=== PATIENT | male | born 1935 | race Caucasian/White ===

== ENCOUNTER → 2016-06-07 | Outpatient (CLI) | payer BC, OTHER ==
--- NOTE | 2016-06-07 12:36 | DX ---
Biphasic Esophagram Clinical History: 81-year-old male with dysphagia and a prior history of cervical arthrodesis. Technique: While the patient was standing, effervescent crystals and thick barium were ingested. Fluo roscopy of the hypopharynx and of the cervical and thoracic esophagus was performed. The patient was also placed in a supine position to assess for reflux. A prone STEVEN drinking esophagus was deferred be cause of the patient's prior cervical arthrodesis. Fluoroscopy Time: 2.7 minutes (exposure dose of 28.50 mGy). Comparison Study: This is read in conjunction with a video fluoroscopic exam performed with [facility] tony choi reported separately. Findings: There is oropharyngeal propulsion of the bolus into the hypopharynx with significant poolin g in the vallecula and piriform sinuses. There is poor epiglottic inversion and there was some vestib ular penetration, and minimal aspiration (which was sensate), and prompted multiple episodes of throa t-clearing. There was no interference in the cervical esophageal motility from the patient's prior AC DF. There was no cricopharyngeus spasm, achalasia, or Zenker diverticulum. There is thoracic esophage al dysmotility observed, and despite prior administration of effervescent crystals, there was subopti mal air contrast distention. There was evidence of esophageal dysmotility with some antegrade and ret rograde peristalsis observed. There was no hiatal hernia elicited, although a Valsalva maneuver was n ot performed. There is no esophageal ulceration or stricture identified, or pulsion diverticulum. I p rovided a preliminary interpretation to the patient at the time of exam performance. Impression: 1. Oropharyngeal dysphagia with hypopharyngeal pooling, poor epiglottic function, and some vestibular penetration and transient sensate aspiration of the barium. 2. Thoracic esophageal dysmotility.
--- NOTE | 2016-06-07 12:41 | DX ---
Video Esophagram with Speech Therapy Clinical History: 81-year-old male who had a prior ACDF, and presents for reevaluation of dysphagia. ICD-10 Diagnostic Code: R13.10. Technique: This exam was performed in conjunction with Shauna Corley, the speech therapist, and the p atient was imaged in the lateral projection while ingesting thin barium, pureed consistency barium, a nd a cracker coated with barium. Fluoroscopy Time: 2.1 minutes (exposure dose of 3.40 mGy). Comparison Study: Video esophagram with speech therapy, dated November 15, 2015. Findings: There is oropharyngeal propulsion of the bolus into the hypopharynx, but very poor and inc omplete epiglottic inversion with moderate persistent pooling of each of the ingested substances in t he vallecula and piriform sinuses. There was no jet aspiration observed during the course of the ex am. The anterior cervical diskectomy and fusion plate from C3 to C6 is appropriately adhered, and the re is no significant impingement on the posterior cervical esophageal wall. There is no upper esophag eal dysfunction. Impression: Moderate pharyngeal dysphagia with significant hypopharyngeal residue requiring sequenti al swallows for clearing. There is also poor epiglottic inversion, but no aspiration was observed wit h limited quantities. Please also refer to the speech therapist's separate assessments and specific recommendations for fol low up.
== END ==
PROVIDERS: ATTEND Otolaryngology
DX: R13.10 Dysphagia, unspecified (principal); K22.4 Dyskinesia of esophagus; J38.7 Other diseases of larynx
CPT/HCPCS: 74220; 74230; 92611; G8996; G8997; G8998

== ENCOUNTER → 2016-11-07 | Outpatient (CLI) | payer BC | LOC: FIMAGING 09:35 | PROVIDERS: ATTEND Physician Assistant | DX: Z09 Encounter for follow-up examination after completed treatment for conditions other than malignant neoplasm (principal); Z98.1 Arthrodesis status ==

== ENCOUNTER 2017-01-15 08:34 | Day surgery (SDC) | payer BC ==
[2017-01-15] MEDS ORDERED: LR 1,000 ML IV ONE (09:05)
[2017-01-15] MEDS ORDERED: LIDOCAINE 1% 2 ML INJ ID PRN (09:05)
[2017-01-15 09:12] VITALS: PULSE 77
--- NOTE | 2017-01-15 09:53 | CPEKG ---
Heart Rate: 75 RR Interval: 800 QRSD Interval: 118 QT Interval: 464 QTC Interval: 519 QRS [place]: -28 T Wave [place]: 177 EKG Severity - ABNORMAL ECG - EKG Impression: ATRIAL FIBRILLATION EKG Impression: NONSPECIFIC INTRAVENTRICULAR CONDUCTION DELAY Electronically Signed By: Deric Bartlett 15-Jan-2017 17:17:16
[2017-01-15 10:09] LABS: ANION GAP 7 mEq/L (8-16); CALCIUM 8.9 mg/dL (8.5-10.4); CARBON DIOXIDE 28 mEq/l (22-31); CHLORIDE 103 mEq/L (97-110); CREATININE 0.9 mg/dL (0.7-1.3); GLOMERULAR FILTRATION RATE > 60; GLUCOSE 74 mg/dL (70-100); SODIUM 138 mEq/L (134-144)
[2017-01-15] MEDS ORDERED: PROPOFOL/EMULSION 500 MG/50 ML BOTTLE IV ONE (11:28)
--- NOTE | 2017-01-15 11:31 | PDGENHP ---
History & Physical Chief Complaint: dyspahgia History of Present Illness: 81 year old male presents with ongoing dysphagia. + liquids and solids. abnormal videofluoro Pertinent Past, Social, Family History: PMHx: spinal surgery, afib,cad Relevant Physical Exam: HEENT: anicteric. CV- IRR IRR. Lungs- CTAB Cardiorespiratory Assessment: ASA 3. [place] 2
--- NOTE | 2017-01-15 11:31 | PDANEPAE ---
ANE History of Present Illness here for egd ANE Past Medical History - Cardiovascular History Hx Hypertension: Yes Hx Arrhythmias: Yes Hx Chest Pain: No Hx Coronary Artery / Peripheral Vascular Disease: Yes Hx CHF / Valvular Disease: Yes Hx Palpitations: No Cardiovascular History Comment: STENT 2006. ATRIAL FIB. cad. CHF 08/2015 COLLAPSED TWICE AT HOME - Pulmonary History Hx COPD: No Hx Asthma/Reactive Airway Disease: No Hx Recent Upper Respiratory Infection: No Hx Oxygen in Use at Home: No Hx Sleep Apnea: Yes Sleep Apnea Screening Result - Last Documented: Positive Pulmonary History Comment: HAS NORMAL COLD BEGINNING 09/13/15 - Neurologic History Hx Cerebrovascular Accident: No Hx Seizures: No Hx Dementia: No - Endocrine History Hx Diabetes: No - Renal History Hx Renal Disorders: Yes Renal History Comment: NOCTURIA - Liver History Hx Hepatic Disorders: No - Neurological & Psychiatric Hx Hx Neurological and Psychiatric Disorders: Yes Neurological / Psychiatric History Comment: DEPRESSION - Cancer History Hx Cancer: Yes Cancer History Comment: SKIN - Congenital Disorder History Hx Congenital Disorders: No - GI History Hx Gastrointestinal Disorders: Yes Gastrointestinal History Comment: having difficulty swallowing since surgery in 10/2015 - Other Health History Other Health History: THROMBOCYTOPENIA. ARTHRITIS. wears glasses - Chronic Pain History Chronic Pain: No - Surgical History Prior Surgeries: 10/06/15 ACDF and C3-6 instrumentation with [employer]. RT CATARACT. APPENDECTOMY. REMVL BONE CYST RT FINGER ANE Review of Systems Review of systems is: negative - Exercise capacity Exercise capacity: >=4 METS METS (RN): 4 METS ANE Patient History - Allergies Allergies/Adverse Reactions: No Known Allergies Allergy (Verified 01/12/17 15:30) - Home Medications Home medications: home medication list seen and reviewed Home Medications: Atenolol [Tenormin 25 mg (*)] 06/14/10 [Last Taken 01/14/17 12:00] Lisinopril [Zestril 20 mg (*)] 06/14/10 [Last Taken 01/14/17 12:00] Sertraline HCl [Zoloft 50mg (*)] 06/14/10 [Last Taken 01/14/17 12:00] Simvastatin 06/14/10 [Last Taken 01/14/17 12:00] Warfarin Sodium [Coumadin 5MG (*)] 06/14/10 [Last Taken 01/12/17] Furosemide [Lasix 40 MG (*)] 09/16/15 [Last Taken 01/14/17 12:00] Aspirin 81mg (*) 01/12/17 [Last Taken 01/14/17 12:00] - NPO status NPO Since - Liquids (Date): 01/14/17 NPO Since - Liquids (Time): 20:00 NPO Since - Solids (Date): 01/14/17 NPO Since - Solids (Time): 20:00 - Smoking Hx Smoking Status: Never smoked - Family Anes Hx Family Hx Anesthesia Complications: none ANE Labs/Vital Signs - Labs Result Diagrams: 01/15/17 09:40 - Vital Signs Blood Pressure: 139/83 Heart Rate: 77 Respiratory Rate: 15 O2 Sat (%): 93 Height: 182.88 cm Weight: 81.647 kg ANE Physical Exam - Airway Neck exam: FROM, decreased ROM Mallampati Score: Class 1 - Pulmonary Pulmonary: no respiratory distress - Cardiovascular Cardiovascular: irregularly irregular - ASA Status ASA Status: III ANE Anesthesia Plan Anesthesia Plan: GA with mask
[2017-01-15] MEDS ORDERED: NALOXONE HCL 0.4 MG/ML INJ IVP PRN (11:39)
[2017-01-15] MEDS ORDERED: fentaNYL 100 MCG/2 ML INJ IVP PRN (11:39)
[2017-01-15] MEDS ORDERED: ONDANSETRON 4 MG/2 ML VIAL IVP PRN (11:39)
--- NOTE | 2017-01-15 12:21 | POSTANESTH ---
Post Anesthetic Evaluation Cardiovascular Status: Normal, Stable Respiratory Status: Normal, Stable Level of Consciousness/Mental Status: Can Participate in Eval Pain Control: Adequate, Prn Tx Ordered Nausea/Vomiting Control: Adequate, Prn Tx Ordered Complications Possibly Related to Anesthesia: None Noted
[2017-01-15 12:31] VITALS: TEMP 97.7
[2017-01-15] MEDS ORDERED: NS 500 ML IV SCH (13:00)
[2017-01-15 13:25] VITALS: BP 144/96; RESP 15; O2SAT 94
--- NOTE | 2017-01-15 13:50 | GPN ---
[f rep st] PROCEDURE NOTE DATE OF PROCEDURE: 01/15/2017 PROCEDURE: Esophagogastroduodenoscopy with biopsy, dilation. INDICATION: The patient is an 81-year-old male who presents for evaluation of dysphagia. CONSENT: Risks, benefits, and alternatives of the procedure were discussed in detail to the patient. Risk of infection, bleeding, perforation, and sedation were discussed. All questions answered. Informed consent was obtained. MEDICATIONS: Propofol. Please see Anesthesia record for details. ESTIMATED BLOOD LOSS: Insignificant. ESOPHAGOGASTRODUODENOSCOPY EXAMINATION: The Olympus upper endoscope was entered in the mouth and advanced to the esophagus. The proximal, mid, and distal esophagus were normal in appearance. Biopsies were taken to rule of the mid esophagus to rule out eosinophilic esophagitis. On the way out, a empiric dilation was performed with 15 and 18 mm balloon, which were pulled through the esophagus. No esophageal stricture was noted. The stomach was entered and closely examined, including retroflexed views of the angularis, cardia, and fundus. The mucosa in the antrum and body was erythematous and biopsies were taken. The duodenal bulb and the 2nd portion of the duodenum were normal in appearance. IMPRESSION: 1. No obvious stricture in the esophagus. 2. Biopsies to rule out eosinophilic esophagitis were taken. 3. Biopsies for gastritis were taken. RECOMMENDATIONS: 1. Follow up on biopsy results. 2. A clear liquid diet, and advance. 3. Continue previous medications. 4. Office visit in 4 weeks. /[id number]/MODL MTDD
== END 2017-01-15 13:26 | disposition home or self-care (01) ==
LOC: FSGY 08:34
PROVIDERS: ATTEND Internal Medicine Gastroenterology
PROC: 0DB58ZX Excision of Esophagus, Via Natural or Artificial Opening Endoscopic, Diagnostic (ICD-10-PCS; principal; 2017-01-15 10:00)
PROC: 0DB68ZX Excision of Stomach, Via Natural or Artificial Opening Endoscopic, Diagnostic (ICD-10-PCS; principal; 2017-01-15 10:00)
DX: R13.10 Dysphagia, unspecified (principal); K29.50 Unspecified chronic gastritis without bleeding; I48.91 Unspecified atrial fibrillation; I25.10 Atherosclerotic heart disease of native coronary artery without angina pectoris; I10 Essential (primary) hypertension; Z95.5 Presence of coronary angioplasty implant and graft
CPT/HCPCS: J2704

== ENCOUNTER → 2017-03-04 | Outpatient (CLI) | payer BC | LOC: FIMAGING 13:32 | PROVIDERS: ATTEND Neurological Surgery | DX: M99.71 Connective tissue and disc stenosis of intervertebral foramina of cervical region (principal); M48.02 Spinal stenosis, cervical region; M50.223 Other cervical disc displacement at C6-C7 level; M48.061 Spinal stenosis, lumbar region without neurogenic claudication; M99.73 Connective tissue and disc stenosis of intervertebral foramina of lumbar region; M12.88 Other specific arthropathies, not elsewhere classified, other specified site; Z98.1 Arthrodesis status ==

== ENCOUNTER → 2017-03-09 | Outpatient (CLI) | payer BC ==
[2017-03-09 16:00] LABS: % IMMATURE GRANULYOCYTES 0.4 % (0.0-1.1); ABSOLUTE IMMATURE GRANULOCYTES 0.02 10^3/uL (0.00-0.10); ADD DIFF? NO; ADD MORPH? NO; ADD SCAN? NO; ATYPICAL LYMPHOCYTE FLAG 0 (0-99); FRAGMENT RBC FLAG 0 (0-99); HEMATOCRIT 45.4 % (40.0-51.0); HEMOGLOBIN 15.1 g/dL (13.7-17.5); LEFT SHIFT FLG 0 (0-99); LIPEMIA HEMOLYSIS FLAG 80 (0-99); MEAN CELL HEMOGLOBIN 32.8 pg (27.9-34.1); MEAN CELL HEMOGLOBIN CONCENTR. 33.3 g/dL (32.4-36.7); MEAN CELL VOLUME 98.5 fL (81.5-99.8); MEAN PLATELET VOLUME 11.1 fL (8.7-11.7); PLATELET CLUMPS FLAG 0 (0-99); PLATELET COUNT 123 10^3/uL (150-400); RED BLOOD CELL COUNT 4.61 10^6/uL (4.40-6.38); RED CELL DISTRIBUTION WIDTH 14.5 % (11.5-15.2)
[2017-03-09 16:17] LABS: ALANINE AMINOTRANSFERASE 42 IU/L (21-72); ALBUMIN 3.7 g/dL (3.5-5.0); ALKALINE PHOSPHATASE 79 IU/L (38-126); ANION GAP 10 mEq/L (8-16); ASPARTATE AMINOTRANSFERASE 36 IU/L (17-59); BILIRUBIN,TOTAL 1.1 mg/dL (0.1-1.4); CALCIUM 9.3 mg/dL (8.5-10.4); CARBON DIOXIDE 26 mEq/l (22-31); CHLORIDE 103 mEq/L (97-110); CREATININE 0.9 mg/dL (0.7-1.3); GLOMERULAR FILTRATION RATE > 60; GLUCOSE 90 mg/dL (70-100); POTASSIUM 4.1 mEq/L (3.5-5.2); SODIUM 139 mEq/L (134-144); TOTAL PROTEIN 6.5 g/dL (6.3-8.2)
== END ==
LOC: FIMAGING 15:21
PROVIDERS: ATTEND Internal Medicine Interventional Cardiology
DX: R91.8 Other nonspecific abnormal finding of lung field (principal); R06.02 Shortness of breath; I50.32 Chronic diastolic (congestive) heart failure; I25.10 Atherosclerotic heart disease of native coronary artery without angina pectoris

== ENCOUNTER → 2017-04-03 | Outpatient (CLI) | payer BC | LOC: FIMAGING 13:37 | PROVIDERS: ATTEND Internal Medicine Pulmonary Disease | DX: J90 Pleural effusion, not elsewhere classified (principal); I25.10 Atherosclerotic heart disease of native coronary artery without angina pectoris; I70.0 Atherosclerosis of aorta; I51.7 Cardiomegaly ==

== ENCOUNTER → 2017-04-20 | Outpatient (CLI) | payer BC | LOC: FIMAGING 12:02 | PROVIDERS: ATTEND Internal Medicine | DX: R26.2 Difficulty in walking, not elsewhere classified (principal); Z13.6 Encounter for screening for cardiovascular disorders ==

== ENCOUNTER → 2017-05-07 | Outpatient (CLI) | payer BC | LOC: FIMAGING 10:28 | PROVIDERS: ATTEND Internal Medicine Pulmonary Disease | DX: J60 Coalworker's pneumoconiosis (principal) ==

== ENCOUNTER → 2017-05-29 | Outpatient (CLI) | payer BC ==
[~2017-05-29] MED LIST: LIDOCAINE 1% 300 MG/30 ML SDV ONE
== END ==
LOC: FIMAGING 11:24
PROVIDERS: ATTEND Internal Medicine Pulmonary Disease
PROC: 0W993ZZ Drainage of Right Pleural Cavity, Percutaneous Approach (ICD-10-PCS; principal; 2017-05-29)
DX: J90 Pleural effusion, not elsewhere classified (principal)

== ENCOUNTER 2017-09-24 11:31 | Inpatient (IN) | payer OTHER, BC ==
--- NOTE | 2017-09-24 15:28 | CPEKG ---
Heart Rate: 87 RR Interval: 690 QRSD Interval: 114 QT Interval: 424 QTC Interval: 510 QRS [place]: -31 T Wave [place]: 150 EKG Severity - ABNORMAL ECG - EKG Impression: ATRIAL FIBRILLATION EKG Impression: NONSPECIFIC INTRAVENTRICULAR CONDUCTION DELAY EKG Impression: MINIMAL ST DEPRESSION, LATERAL LEADS Electronically Signed By: Andrey Meyers 24-Sep-2017 17:32:41
--- NOTE | 2017-09-24 15:51 | PDCARPN ---
Cardiology Progress Note Chief Complaint: Lower leg edema Assessment/Plan: Assessment: EDEMA: Peripheral edema progressing. Enlarging abdominal girth. Seen in clinic by Dr Rodrigues this morning for his continued leg edema. Admit to hospital for IV diuresis. CAD with remote PCI. Denies SOB or chest pain. CHF-- Chronic diastolic CHF managed on oral Lasix--BNP today 4720 Cr 0.8 Pulmonary Hypertension with Cor Pulmonale Plan: IV diuresis 09/24/17 15:43 09/24/17 15:54 Reviewed/Discussed With: multidisciplinary team Objective: Intake/Output (24 Hrs) 09/23/17 09/24/17 09/25/17 05:59 05:59 05:59 Output Total 200 Balance -200 Output: Urine (ml) 200 Toilet 200 Other: Weight 88.8 kg - Physical Exam Constitutional: no apparent distress Cardiovascular: no rubs, no gallops, irregularly irregular Peripheral Pulses: 2+: dorsalis-pedis (R), dorsalis-pedis (L) Respiratory: no crackles, no wheezes, reduced air movement Skin: warm, other (peripheral and abdominal edema) Neurologic: AAOx3 Psychiatric: cooperative, interactive ICD10 Worksheet Patient Problems: Problems Problem Status Onset Cervical radiculitis Acute Cervical spinal stenosis Acute Cervicalgia Acute
[2017-09-24] MEDS ORDERED: WARFARIN SODIUM 2.5 MG TAB PO SCH (16:00)
[2017-09-24] MEDS: FUROSEMIDE 100 MG/10 ML VIAL IVP SCH ×2 (17:04→22:55)
[2017-09-24] MEDS: LISINOPRIL 20 MG TAB PO SCH (20:38)
[2017-09-25 04:35] LABS: INR 1.89 (0.83-1.16); PROTIME(PATIENT) 21.8 SEC (12.0-15.0)
[2017-09-25] MEDS: LEVOTHYROXINE 25 MCG TAB PO SCH (06:20)
[2017-09-25] MEDS: FUROSEMIDE 100 MG/10 ML VIAL IVP SCH ×2 (06:20→12:02)
--- NOTE | 2017-09-25 07:17 | PDMN ---
Medical Necessity Medical necessity: est los>2mn for progressing LE edema and enlarging abdominal girth in setting of chronic diastolic CHF; admit for IV diuresis; comorbid CAD w / remote PCI, pulmonary htn with cor pulmonale; per order and progress note 09/24
[2017-09-25] MEDS: LISINOPRIL 20 MG TAB PO SCH ×2 (08:21→21:00)
[2017-09-25] MEDS: SERTRALINE HCL 50 MG TAB PO SCH (08:21)
[2017-09-25] MEDS: METOLAZONE 2.5 MG TAB PO SCH (08:22)
[2017-09-25] MEDS: PSYLLIUM METAMUCIL 1 PKT PO SCH (08:22)
[2017-09-25] MEDS: SIMVASTATIN 10 MG PO SCH ×2 (08:25→10:42)
[2017-09-25] MEDS ORDERED: PRAVASTATIN SODIUM 20 MG TAB PO SCH (09:00)
[2017-09-25] MEDS ORDERED: NON-FORMULARY NEW DRUG (Simvastatin [Simvastatin] 10 MG) PO SCH (09:00)
--- NOTE | 2017-09-25 11:18 | PDCARPN ---
Cardiology Progress Note Assessment/Plan: Assessment: EDEMA: Peripheral edema progressing. Enlarging abdominal girth. Seen in clinic by Dr Rodrigues this morning for his continued leg edema. Admit to hospital for IV diuresis. CAD with remote PCI. Denies SOB or chest pain. CHF-- Chronic diastolic CHF managed on oral Lasix--BNP today 4720 Cr 0.8 Pulmonary Hypertension with Cor Pulmonale Plan: IV diuresis 09/25/17 11:15 He is diuresing well. Will continue with current medication. Labs in range. Will have him weighed today. He is feeling better. He is not SOB. Wearing compression socks. 1 + leg edema Delmer. Will get BNP tomorrow. Kidneys handling diuresis well. 09/25/17 15:18 Weight down from 88.8Kg admit to now 82.6 Kg. Will get BNP added to todays lab. Add Potassium supplement. Degrease Lasix to 60 mg IVP BID. Reviewed/Discussed With: multidisciplinary team Objective: Vital Signs (8 Hrs) Temp Pulse Resp BP Pulse Ox 09/25/17 11:05 36.4 C 70 14 105/60 93 09/25/17 07:40 36.4 C 83 14 124/69 H 93 09/25/17 03:40 36.5 C 97 19 104/58 L 91 L Intake/Output (24 Hrs) 09/24/17 09/25/17 09/26/17 05:59 05:59 05:59 Intake Total 900 250 Output Total 3000 1000 Balance -2100 -750 Intake: Oral (ml) 900 250 Output: Urine (ml) 3000 1000 Toilet 3000 1000 Other: Weight 82.6 kg Intake Quantity Yes Sufficient Number of Voids Toilet 1 Number of Stools Toilet 1 Result Diagrams: 09/25/17 03:02 - Physical Exam Cardiovascular: no murmurs, no rubs, irregularly irregular Respiratory: clear to auscultate bilat, no crackles, no wheezes Skin: no rashes, warm Neurologic: AAOx3 Psychiatric: cooperative, interactive ICD10 Worksheet Patient Problems: Problems Problem Status Onset chronic disease mgmt/transitional care Acute Cervical radiculitis Acute Cervical spinal stenosis Acute Cervicalgia Acute
[2017-09-25] MEDS: ATENOLOL 25 MG TAB PO SCH (12:02)
--- NOTE | 2017-09-25 13:43 | ASMTCMCOM ---
CM Note CM Note Notes: 82yr old male admitted for CHF, L LE edema. He has a Hx of Cervical spine stenosis, CAD, Pulm HTN, CHF. Patient being diuresed. PT recommending home no needs at this time. Patient lives with his . Date Signed: 09/25/2017 01:42 PM Electronically Signed By:Shiela Penn LCSW
[2017-09-25] MEDS: POTASSIUM CL 20 MEQ TAB PO SCH (15:49)
[2017-09-25] MEDS: FUROSEMIDE 40 MG/4 ML VIAL IVP SCH (15:50)
[2017-09-25] MEDS ORDERED: WARFARIN SODIUM 7.5 MG TAB PO ONE (16:00)
[2017-09-25] MEDS ORDERED: WARFARIN SODIUM 5 MG TAB PO SCH (16:00)
[2017-09-26 04:48] LABS: INR 1.95 (0.83-1.16); PROTIME(PATIENT) 22.3 SEC (12.0-15.0)
[2017-09-26] MEDS: LEVOTHYROXINE 25 MCG TAB PO SCH (07:06)
[2017-09-26] MEDS: METOLAZONE 2.5 MG TAB PO SCH (08:19)
[2017-09-26] MEDS: SERTRALINE HCL 50 MG TAB PO SCH (08:19)
[2017-09-26] MEDS: POTASSIUM CL 20 MEQ TAB PO SCH (08:20)
[2017-09-26] MEDS: FUROSEMIDE 40 MG/4 ML VIAL IVP SCH (08:20)
[2017-09-26] MEDS: PSYLLIUM METAMUCIL 1 PKT PO SCH (08:21)
[2017-09-26] MEDS: SIMVASTATIN 10 MG PO SCH (08:21)
[2017-09-26] MEDS: LISINOPRIL 10 MG TAB PO SCH ×2 (11:48→20:57)
[2017-09-26] MEDS: ATENOLOL 25 MG TAB PO SCH (11:49)
[2017-09-26] MEDS: LISINOPRIL 20 MG TAB PO SCH (11:50)
--- NOTE | 2017-09-26 13:47 | ASMTCMCOM ---
CM Note CM Note Notes: 09/26/2017 Case Management Note Met w/pt today. Pt is refusing home care at d/c. Pt will follow up with Dr. Rodrigues after discharge. Pt has home O2 from [facility]. Transitional Care met w/pt yesterday, he also refused their assistance. Case Management d/c poc: independent with follow up as directed. Date Signed: 09/26/2017 01:46 PM Electronically Signed By:Karely Rivero RN
[2017-09-26] MEDS ORDERED: POTASSIUM CL 20 MEQ TAB PO ONE (15:08)
[2017-09-26] MEDS ORDERED: WARFARIN SODIUM 5 MG TAB PO ONE (16:00)
[2017-09-26] MEDS ORDERED: POTASSIUM CL 20 MEQ TAB ONE (17:21)
[2017-09-27 04:59] LABS: INR 2.35 (0.83-1.16); PROTIME(PATIENT) 25.7 SEC (12.0-15.0)
[2017-09-27] MEDS: LISINOPRIL 10 MG TAB PO SCH (09:29)
[2017-09-27] MEDS: METOLAZONE 2.5 MG TAB PO SCH (09:30)
[2017-09-27] MEDS: LEVOTHYROXINE 25 MCG TAB PO SCH (09:36)
[2017-09-27] MEDS: SIMVASTATIN 10 MG PO SCH (09:36)
[2017-09-27] MEDS: PSYLLIUM METAMUCIL 1 PKT PO SCH (09:37)
[2017-09-27] MEDS: POTASSIUM CL 20 MEQ TAB PO SCH (09:38)
[2017-09-27] MEDS: SERTRALINE HCL 50 MG TAB PO SCH (09:48)
[2017-09-27] MEDS ORDERED: WARFARIN SODIUM 2.5 MG TAB PO SCH (16:00)
[2017-09-27] MEDS ORDERED: WARFARIN SODIUM 2.5 MG TAB PO ONE (16:00)
--- NOTE | 2017-09-27 16:04 | PDCARPN ---
Cardiology Progress Note Assessment/Plan: Assessment: EDEMA: Peripheral edema progressing. Enlarging abdominal girth. Seen in clinic by Dr Rodrigues this morning for his continued leg edema. Admit to hospital for IV diuresis. CAD with remote PCI. Denies SOB or chest pain. CHF-- Chronic diastolic CHF managed on oral Lasix--BNP today 4720 Cr 0.8 Pulmonary Hypertension with Cor Pulmonale Plan: IV diuresis 09/25/17 11:15 He is diuresing well. Will continue with current medication. Labs in range. Will have him weighed today. He is feeling better. He is not SOB. Wearing compression socks. 1 + leg edema Delmer. Will get BNP tomorrow. Kidneys handling diuresis well. 09/25/17 15:18 Weight down from 88.8Kg admit to now 82.6 Kg. Will get BNP added to todays lab. Add Potassium supplement. Decrease Lasix to 60 mg IVP BID. 09/26/17 LATE ENTRY Weight again down to 78.2 KG from 82.6. BNP 3900 today (down from 4550). He feels much better. He ambulated in the aviles this morning. After return to his room, he became dizzy and BP found to be 70/43. Bolus of fluid given. Potassium added for replacement. Metoprolol, Lasix, Metolazone, and Lisinopril on HOLD. His BP did respond to extra fluid. After lunch sleeping. BP 98/60's. He remains in A Fib with rate 111. On Warfarin for anticoagulation. Will monitor BP and resume his medications RAFITA. EXAM: Alert and oriented. HEART: Rate irregular, NO rubs. LUNGs: Mild crackles, no wheezing. ABD: Soft, non-tender. Genitals:Scrotum non- enlargement. Extremities: Peripheral edema improved. 1+ edema. Compression stockings in place. Cooperative and interactive. 09/27/17 15:26 Blood pressure remains average 98/60's . He is tolerating it well. Medications remain on HOLD. BNP yesterday 3900, today 2840. Wt yesterday 78.2, Today 78.1 BP 4 AM 107/65, 7AM 98/59. He is asymptomatic. His BP has remained low through the day. Have not resumed medications. Remains in A Fib with rate 90 bpm. Continues Warfarin. His lungs moist, no wheezes. NO SOB. Compression stockings in place, Mild leg edema today. Scrotum not enlarged. Have reviewed his care with Deric Bartlett MD. Will continue to monitor closely. Subjective: I am ready to go home. I feel good. Not SOB. Reviewed/Discussed With: multidisciplinary team, other (Deric Bartlett MD) Time Spent With Patient: 30 min Objective: Vital Signs (8 Hrs) Temp Pulse Resp BP Pulse Ox 09/27/17 15:10 36.6 C 85 18 104/59 L 94 09/27/17 11:11 36.6 C 85 16 127/76 H 95 Intake/Output (24 Hrs) 09/26/17 09/27/17 09/28/17 05:59 05:59 05:59 Intake Total 800 950 240 Output Total 5950 1025 400 Balance -5150 -75 -160 Intake: Oral (ml) 800 950 240 Output: Urine (ml) 5950 1025 400 Toilet 5950 350 Urinal 675 400 Other: Weight 78.2 kg 78.1 kg Intake Quantity Yes Sufficient Number of Voids Urinal 2 Result Diagrams: 09/27/17 03:32 - Physical Exam Constitutional: no apparent distress Cardiovascular: no rubs, no gallops, irregularly irregular Peripheral Pulses: 2+: dorsalis-pedis (R), dorsalis-pedis (L) Respiratory: other (mild rales), No no wheezes, No expiratory wheeze Gastrointestinal: no tenderness, ascites (resolving) Skin: warm, other (mild peropheral edema) Neurologic: AAOx3 Psychiatric: cooperative, interactive ICD10 Worksheet Patient Problems: Problems Problem Status Onset chronic disease [facility]/transitional care Acute Cervical spinal stenosis Acute Cervicalgia Acute Cervical radiculitis Acute
[2017-09-27] MEDS ORDERED: FUROSEMIDE 20 MG TAB PO ONE (16:37)
[2017-09-28 03:43] LABS: INR 2.41 (0.83-1.16); PROTIME(PATIENT) 26.2 SEC (12.0-15.0)
[2017-09-28] MEDS: LEVOTHYROXINE 25 MCG TAB PO SCH (06:22)
[2017-09-28] MEDS: SIMVASTATIN 10 MG PO SCH (09:14)
[2017-09-28] MEDS: SERTRALINE HCL 50 MG TAB PO SCH (09:14)
[2017-09-28] MEDS: PSYLLIUM METAMUCIL 1 PKT PO SCH (09:14)
[2017-09-28] MEDS: POTASSIUM CL 20 MEQ TAB PO SCH (09:15)
[2017-09-28 11:07] VITALS: BP 115/75
[2017-09-28] MEDS ORDERED: FUROSEMIDE 20 MG TAB PO SCH (15:00)
[2017-09-28] MEDS ORDERED: WARFARIN SODIUM 5 MG TAB PO SCH (16:00)
--- NOTE | 2017-09-28 16:40 | GDS ---
[f rep st] DISCHARGE SUMMARY ADMISSION DIAGNOSES: 1. Decompensated congestive heart failure. 2. Peripheral edema. 3. Chronic atrial fibrillation. 4. Coronary artery disease. 5. Hypoxia. DISCHARGE DIAGNOSES: 1. Compensated congestive heart failure. 2. Coronary artery disease with history of stents to the coronary artery. 3. Peripheral edema, improved and compensated. 4. Hypertension. 5. Hyperlipidemia. COURSE OF HOSPITALIZATION: This gentleman was seen in [facility] by Dr. Otis Rodrigues on September 24 with worsening heart failure. He had severe peripheral edema and scrotal edema with incr easing shortness of breath and increasing abdominal fullness. He was hypoxic. He had no chest pain. It was recommended that he be hospitalized to provide intravenous Lasix for diureses. He was in ag reement with this plan. He did respond nicely to IV Lasix. On admission, his weight was 88 kg. On d ischarge, his weight was 78.1. His BNP on admission was 7000 and today's BNP is 2030. He has been u p ambulating in the halls with good tolerance. Yesterday, he had an episode of hypotension, which di d respond nicely to fluids. His blood pressure has come up nicely running in the one teens over 80s. His atrial fibrillation has remained well managed despite needing to hold his atenolol due to his h ypotension. This will be restarted, starting tomorrow. His potassium was managed well with suppleme ntation. At this time, he currently is stable for discharge. MEDICATIONS: 1. He will go home on atenolol 25 mg daily starting tomorrow, September 29, 2017. 2. Zoloft 50 mg daily. 3. Simvastatin 10 mg daily. 4. Furosemide 20 mg twice daily. 5. Lovenox 25 mcg daily. 6. Aspirin 81 mg daily. 7. Warfarin 5 mg Sunday, Sunday, Sunday, Sunday, Sunday. Warfarin 2.5 mg Sunday and . 8. Lisinopril was stopped due to his hypotension. ALLERGIES: He has no known allergies. PHYSICAL EXAMINATION ON DAY OF DISCHARGE: HEART: Heart rate is atrial fibrillation, well rate contr olled with a rate of 80. He has a mild systolic murmur. No rubs or gallops. LUNGS: Sounds are mild rales. No wheezes or rhonchi. ABDOMEN: Soft and round. No tenderness. GENITOURINARY: Scrotum has return to natural size. Peripheral edema has resolved. DISCHARGE INSTRUCTIONS: He will follow up at [facility] on October 01, 2017. He is to stop and get lab prior to this visit, including metabolic panel and BNP. He is asked to keep his legs elevated a s much as possible and to continue wearing compression stockings. He can take these off for sleeping . Weigh daily first thing in the morning, every morning, and record weights. He is to use oxygen co ntinuous. We will notify [facility] to provide humidification for his concentrator. He is to follow a low-sodium, 2000 mg diet. He is asked to bring his weight diary log along for his office appointments. He will eat a banana every day for potassium replacement, which we will continu e to monitor with laboratory. He will start his atenolol tomorrow morning. He is to continue Lasix 20 mg twice daily. This may be adjusted with upcoming appointments. At this time, he currently is s table for discharge. /[id number]/MODL
[2017-10-01] MEDS ORDERED: WARFARIN SODIUM 2.5 MG TAB PO SCH (16:00)
== END 2017-09-28 15:12 | disposition home or self-care (01) | DRG 293 ==
LOC: F2W 12:06 → OBSVTOIN 12:06
PROVIDERS: ADMIT Internal Medicine Interventional Cardiology; ATTEND Internal Medicine Cardiovascular Disease
DX: I50.32 Chronic diastolic (congestive) heart failure (principal); I48.2 Chronic atrial fibrillation; I25.10 Atherosclerotic heart disease of native coronary artery without angina pectoris; I27.29 Other secondary pulmonary hypertension; R09.02 Hypoxemia; Z95.5 Presence of coronary angioplasty implant and graft; I11.0 Hypertensive heart disease with heart failure; E78.5 Hyperlipidemia, unspecified; E03.9 Hypothyroidism, unspecified; Z79.82 Long term (current) use of aspirin; Z79.01 Long term (current) use of anticoagulants
CPT/HCPCS: 97116-GP; 97161-GP; G8978-GP-CI; G8979-GP-CI; J1940

== ENCOUNTER 2017-11-28 11:06 | Inpatient (IN) | payer OTHER, BC ==
[2017-11-28] MEDS ORDERED: FUROSEMIDE 40 MG/4 ML VIAL IVP SCH (12:00)
[2017-11-28] MEDS: SPIRONOLACTONE 25 MG TAB PO SCH (12:55)
[2017-11-28] MEDS ORDERED: WARFARIN SODIUM 5 MG TAB PO SCH (13:30)
[2017-11-28 13:37] LABS: PLATELET COUNT 174 10^3/uL (150-400)
[2017-11-28 13:45] LABS: INR 2.17 (0.83-1.16); PROTIME(PATIENT) 24.2 SEC (12.0-15.0)
--- NOTE | 2017-11-28 14:02 | CPEKG ---
Heart Rate: 106 RR Interval: 566 QRSD Interval: 108 QT Interval: 356 QTC Interval: 473 QRS [place]: -20 T Wave [place]: 139 EKG Severity - ABNORMAL ECG - EKG Impression: ATRIAL FIBRILLATION EKG Impression: INCOMPLETE RIGHT BUNDLE BRANCH BLOCK EKG Impression: NONSPECIFIC T ABNORMALITIES, LATERAL LEADS Electronically Signed By: Deric Wells 29-Nov-2017 08:32:53
--- NOTE | 2017-11-28 16:52 | ECHO ---
[email or web address] [address] Main: [phone] Fax: Transthoracic Echocardiogram Name: SHANNAN CAMACHO MR#: [id number] Study Date: 11/28/2017 Study Time: 01:16 PM Date of : 1935 Age: 82 year(s) Height: 182.9 cm (72 in.) Weight: 80.74 kg (178 lb.) BSA: 2.03 m2 Gender: Male Examination: Echo Indication: Shortness of breath, edema, fatigue Image Quality: Adequate Contrast: Requested by: Sandra Fagan BP: 116 mmHg/69 mmHg Heart Rate: Rhythm: Indication: Shortness of breath, edema, fatigue Procedure Staff Regulatory Lead: Bhargavi Sauceda [facility] Reading Physician: Otis Rodrigues MD Requesting Provider: Conclusions: small pericardial effusion. Concentric left ventricular hypertrophy with ejection fraction of 55%. Mild mitral regurgitation. RIght atrial enlargement. Mild aortic regurgitation. Mild to moderate tricuspid regurgitation with a RV systolic pressure. Measurements: Chambers Valvular Assessment AV/MV Valvular Assessment TV/PV Normal Normal Normal Name Value Range Name Value Range Name Value Range Ao Yoanna (2D): 3.6 cm (1.4 cm-2.6 AV Vmax: 0.80 m/s (1 m/s-1.7 TR Vmax: 3.03 mm/s ( - ) cm) m/s) TR PGmax: 37 mmHg ( - ) IVSd (2D): 1.4 cm (0.6 cm-1.1 AV maxP mmHg ( - ) syst. PAP: 42 mmHg ( - ) cm) AV meanP mmHg ( - ) PV Vmax: 0.66 m/s (0.6 m/s-0.9 LVDd (2D): 5.0 cm (4.2 cm-5.9 ANDRÉS (VTI): 3.4 cm ( - ) m/s) cm) MV E Vmax: 0.97 m/s ( - ) PV PGmax: 2 mmHg ( - ) LVDs (2D): 3.6 cm (2.1 cm-4 MV A Vmax: 0.33 m/s ( - ) cm) MV E/A: 2.94 ( - ) LVPWd (2D): 1.4 cm (0.6 cm-1 cm) MV PHT: 0.046 s ( - ) LVOTd 2.2 cm 2.2 cm mm MVA (PHT): 4.8 s ( - ) LVEF (BP): 55 % (>=55 %) RVDd(2D): 3.3 cm (1.9 cm-3.8 cmmm) Continued Measurements: Chambers Valvular Assessment AV/MV Valvular Assessment TV/PV Name Value Name Value Name Value LADs: 4.4 cm MV DecTime: 137 m/s CVP (est.): 5 mmHg LADs Lon.8 cm MV E' Septal: 0.04 m/s LA Area: 36.3 cm2 MV E/E' Septal: 21.60 Patient: SHANNAN CAMACHO Study Date: 11/28/2017 Page 1 of 2 01:16 PM LA Volume: 153 ml MV E/E' Lateral: 13.80 LA Volume Index: 75.4 ml/m2 RA Area: 43.9 cm2 Additional Vessels Name Value Ao Ascendin.7 cm Inferior Vena Cava: 2.1 cm Findings: Left Ventricle: Normal size left ventricle. Concentric LV hypertrophy. Normal global systolic LV function. EF is 55 %. No regional wall motion abnormality. Unable to assess diastolic dysfunction. Right Ventricle: Normal size right ventricle. Normal RV function. Left Atrium: The left atrium is severely dilated. Right Atrium: Right atrial enlargement. Mitral Valve: The mitral valve is normal in appearance and function. Mild mitral valve regurgitation is present. No mitral stenosis is present. Aortic Valve: The aortic valve is tri-leaflet. Mild aortic valve regurgitation is present. No aortic valve stenosis is present. Tricuspid Valve: The tricuspid valve is normal in appearance and function. Mild to moderate tricuspid valve regurgitation. The pulmonary artery pressure is mildly increased. Right ventricular systolic pressure measures 42mmHg. Pulmonic Valve: The pulmonic valve is normal in appearance and function. Mild pulmonic valve regurgitation is noted. Aorta: The aorta is normal. Normal size aortic root measuring 3.6 cm. Normal size ascending aorta measuring 3.7 cm. IVC: The IVC is normal sized. Pericardium: There is a pleural effusion present. There is a pericardial effusion measuring 1.3 cm. (No Signature Object) Patient: SHANNAN CAMACHO Study Date: 11/28/2017 Page 2 of 2 01:16 PM [id number]
[2017-11-28] MEDS: SERTRALINE HCL 50 MG TAB PO SCH (18:14)
[2017-11-28] MEDS: FUROSEMIDE 100 MG/10 ML VIAL IVP SCH ×2 (18:14→23:05)
[2017-11-28] MEDS: ASPIRIN 81 MG CHEWABLE TAB PO SCH (18:15)
[2017-11-28] MEDS: PSYLLIUM METAMUCIL 1 PKT PO SCH (18:15)
[2017-11-29 06:40] LABS: PLATELET COUNT 166 10^3/uL (150-400)
[2017-11-29 06:49] LABS: INR 2.12 (0.83-1.16); PROTIME(PATIENT) 23.8 SEC (12.0-15.0)
[2017-11-29] MEDS: LEVOTHYROXINE 25 MCG TAB PO SCH (07:22)
[2017-11-29] MEDS: LISINOPRIL 2.5 MG TAB PO SCH (07:40)
[2017-11-29] MEDS: FUROSEMIDE 100 MG/10 ML VIAL IVP SCH ×4 (07:40→23:38)
[2017-11-29] MEDS: SPIRONOLACTONE 25 MG TAB PO SCH (07:40)
[2017-11-29] MEDS: METOPROLOL SUCCINATE XR 25 MG TAB PO SCH (07:40)
--- NOTE | 2017-11-29 10:31 | SOAPPROG ---
SOAP Progress Note Assessment/Plan: Assessment: 1. Chronic hypoxia 2. Cor pulmonale with diastolic dysfunction. 3. Hypothyroidism Procedures: Echocardiogram Impression: Diuresing well. TSH markedly elevated. Will begin low-dose Synthroid with slow replacement. Continue oxygen supplementation. 11/29/17 10:29 Subjective: Feeling better. No significant shortness of breath above baseline. No chest pain. No PND orthopnea. Decreased peripheral swelling. Objective: Vital Signs Temp Pulse Resp BP Pulse Ox 36.4 C 98 15 134/75 H 98 11/29/17 07:34 11/29/17 07:34 11/29/17 07:34 11/29/17 07:34 11/29/17 07:34 Laboratory Results 11/29/17 06:25 11/29/17 06:25 11/28/17 11/29/17 11/30/17 05:59 05:59 05:59 Intake Total 740 Output Total 2550 Balance -1810 PT 23.8 SEC (12.0-15.0) H 11/29/17 06:25 INR 2.12 (0.83-1.16) H 11/29/17 06:25 Physical Exam - Physical Exam General Appearance: alert Neck: non-tender Respiratory: other (Decreased breath sounds at base), No crackles, No rales, No wheezing Cardiac/Chest: regular rate, rhythm, No JVD Peripheral Pulses: 1+: carotid (R), carotid (L), femoral (R), femoral (L) Abdomen: non-tender Skin: No rash Neuro/Psych: alert, No facial droop ICD10 Worksheet Patient Problems: Problems Problem Status Onset chronic disease mgmt/transitional care Acute Cervical spinal stenosis Acute Cervicalgia Acute Cervical radiculitis Acute Review of Systems - Review of Systems Constitutional: denies: chills, fever EENTM: no symptoms reported Respiratory: shortness of breath Cardiac: no symptoms reported Gastrointestinal/Abdominal: no symptoms reported Genitourinary: no symptoms Musculoskelatal: no symptoms Skin: no symptoms Neurological: no symptoms Hematologic/Lymphatic: no symptoms reported Immunologic/allergic: no symptoms reported All Other Systems: Reviewed and Negative
--- NOTE | 2017-11-29 10:57 | ASMTCMCOM ---
CM Note CM Note Notes: 11/29/2017 Case Management Note Met w/pt and Nathaly [phone] this morning. Pt admitted for heart failure from his MD office visit. Pt has h/o chronic hypoxia, Cor pulmonale with diastolic dysfunction and hypothyroidism. Pt lives independently with his in his own home. They have hired various services to help support the maintenance of the home. Both are able to drive and report no difficulties preparing meals. Pt has children in the area for support but was hesitant to share names or phone numbers. Pt home O2 company is [employer] providing both a concentrator as well as tanks. Approximately 6 years ago pt had a short stay at [facility]. Pt declined home care or support from transitional care at his September 03 admission. Pt declined any supports from case management today. Pt reports he has a flight on SundayDecember 03 to [place] to visit family. Case Management d/c poc: to be determined. Case Management to follow. Date Signed: 11/29/2017 10:56 AM Electronically Signed By:Karely Rivero RN
--- NOTE | 2017-11-29 11:50 | PDMN ---
Medical Necessity Medical necessity: est los>2mn for cor pulmonale w/ diastolic dysfunction, bilateral pleural effusions and TSH elevation; admit for IV diuresis, supplemental O2, and initiate Symthroid; per order and progress note 11/28/17
[2017-11-29] MEDS ORDERED: WARFARIN SODIUM 2.5 MG TAB PO SCH (16:00)
--- NOTE | 2017-11-29 16:19 | WOCRNPDOC ---
WOCRN Advanced Assessment Note - Skin Integrity Problem, Advanced Assess Coccyx Dressing Type: Mepilex Border Dressing Description: Intact Exudate Amount: None Integumentary Issue Intervention: Visualized Under Dressing Sana Wound Tissue: Blanching, Erythema, Intact Sana Wound Swelling: None Wound Bed Color: Brown Wound Bed Constitution: Scab Site Measurement - Head-to-Toe Length X Width X Depth (cm): 0.2cmx0.2cmx scab Pressure Injury Stage: Stage 2 (current presentation; previous stage unknown) Pressure Injury Present on Admit: Yes (noted by nursing; physician notified) Skin Integrity Problem Comment: Pinpoint scab noted to the left of patient's coccyx, current presentation consistent w/ stage 2 pressure injury. Periwound skin is intact w/ mild, blanching erythema. Per patient and his , patient developed a wound at this location approximately 2 years ago, after he was admitted to the hospital for surgery and prolonged hospital stay. He says he has received treatment for this wound from home care, but was unable to say specifically what that treatment entailed. Nursing placed a sacral/coccyx foam dressing, and this is appropriate to continue while he is here. In addition, he has an off-loading cushion in his chair. Patient declined an Acu-max pump for his bed, stating he prefers to sleep in the recliner. Will have nursing continue w/ plan of care, including off-loading site and protective dressing. Wound RN will follow up in 1 week.
[2017-11-29] MEDS: PSYLLIUM METAMUCIL 1 PKT PO SCH (16:44)
[2017-11-29] MEDS: ASPIRIN 81 MG CHEWABLE TAB PO SCH (16:46)
[2017-11-29] MEDS: SERTRALINE HCL 50 MG TAB PO SCH (16:46)
[2017-11-29] MEDS: PRAVASTATIN SODIUM 20 MG TAB PO SCH (16:46)
[2017-11-30] MEDS: LEVOTHYROXINE 25 MCG TAB PO SCH (05:23)
[2017-11-30] MEDS: FUROSEMIDE 100 MG/10 ML VIAL IVP SCH ×4 (05:23→23:33)
[2017-11-30] MEDS: METOPROLOL SUCCINATE XR 25 MG TAB PO SCH (08:09)
[2017-11-30] MEDS: SPIRONOLACTONE 25 MG TAB PO SCH (08:09)
[2017-11-30] MEDS: LISINOPRIL 2.5 MG TAB PO SCH (08:09)
--- NOTE | 2017-11-30 09:58 | SOAPPROG ---
SOAP Progress Note Assessment/Plan: Assessment: 1. Chronic hypoxia 2. Cor pulmonale with diastolic dysfunction. 3. Hypothyroidism Procedures: Echocardiogram 11/29/17 10:29 Impression: Diuresing well. TSH markedly elevated. Will begin low-dose Synthroid with slow replacement. Continue oxygen supplementation. 11/30/17 09:56 Impression: Continue to diurese well day 2. Overall feeling well moving towards baseline. Wound assessment appreciated. Increase Synthroid to 50 mcg per day. Continue IV diuresis. Subjective: Feeling better. No shortness of breath PND orthopnea. Continued peripheral edema. Objective: Vital Signs Temp Pulse Resp BP Pulse Ox 36.3 C 113 H 15 90/64 L 90 L 11/30/17 03:37 11/30/17 08:00 11/30/17 08:00 11/30/17 08:00 11/30/17 08:00 Laboratory Results 11/29/17 06:25 11/29/17 06:25 11/29/17 11/30/17 12/01/17 05:59 05:59 05:59 Intake Total 740 850 Output Total 2550 1550 Balance -1810 -700 PT 23.8 SEC (12.0-15.0) H 11/29/17 06:25 INR 2.12 (0.83-1.16) H 11/29/17 06:25 Physical Exam - Physical Exam General Appearance: alert, no apparent distress Neck: supple Respiratory: lungs clear Cardiac/Chest: regular rate, rhythm Abdomen: normal bowel sounds, non-tender, soft Skin: No rash Extremities: pedal edema, No calf tenderness Neuro/Psych: no motor/sensory deficits, alert, normal mood/affect, oriented x 3 ICD10 Worksheet Patient Problems: Problems Problem Status Onset chronic disease [facility]/transitional care Acute Cervical spinal stenosis Acute Cervicalgia Acute Cervical radiculitis Acute
--- NOTE | 2017-11-30 13:47 | ASMTCMCOM ---
CM Note CM Note Notes: 11/30/2017 Case Management Note Reviewed chart. There are no changes to the discharge plan. There are no PT or OT evals at this time. If pt requires wound care at d/c, follow up visits to clinic or with primary care provider would be appropriate as pt continues to decline the need for home care at this time. Case Management d/c poc: Home with support from his with follow up as directed. Case Management to follow. Date Signed: 11/30/2017 01:46 PM Electronically Signed By:Karely Rivero RN
[2017-11-30] MEDS ORDERED: WARFARIN SODIUM 5 MG TAB PO SCH (16:00)
[2017-11-30] MEDS: ASPIRIN 81 MG CHEWABLE TAB PO SCH (16:54)
[2017-11-30] MEDS: PSYLLIUM METAMUCIL 1 PKT PO SCH (16:54)
[2017-11-30] MEDS: SERTRALINE HCL 50 MG TAB PO SCH (16:54)
[2017-11-30] MEDS: PRAVASTATIN SODIUM 20 MG TAB PO SCH (16:54)
[2017-12-01 04:41] LABS: INR 2.26 (0.83-1.16)
[2017-12-01] MEDS ORDERED: LEVOTHYROXINE 50 MCG TAB PO SCH (06:00)
[2017-12-01] MEDS: FUROSEMIDE 100 MG/10 ML VIAL IVP SCH (06:34)
[2017-12-01] MEDS: METOPROLOL SUCCINATE XR 25 MG TAB PO SCH (09:30)
[2017-12-01] MEDS: SPIRONOLACTONE 25 MG TAB PO SCH (09:30)
--- NOTE | 2017-12-01 10:33 | SOAPPROG ---
SOAP Progress Note Assessment/Plan: Assessment: 1. Chronic hypoxia 2. Cor pulmonale with diastolic dysfunction. 3. Hypothyroidism 4. Stage II pressure injury pre-existing 5. Atrial fibrillation 6. High risk medication on Coumadin Procedures: Echocardiogram 12/01/17 10:29 Impression: Euvolemic with contraction alkalosis. At baseline. Plan for discharge today with continued clinical follow-up. Follow-up in wound clinic for pressure injury. Recheck TSH in 6 weeks to assure adequate replacement. Resume oral diuretic therapy tomorrow. Prognosis overall remains guarded 11/30/17 09:56 Impression: Continue to diurese well day 2. Overall feeling well moving towards baseline. Wound assessment appreciated. Increase Synthroid to 50 mcg per day. Continue IV diuresis. 11/29/17 10:29 Impression: Diuresing well. TSH markedly elevated. Will begin low-dose Synthroid with slow replacement. Continue oxygen supplementation. Subjective: At baseline. Shortness of breath persists. No pain. Denies palpitations syncope or near syncope. Objective: Vital Signs Temp Pulse Resp BP Pulse Ox 36.3 C 84 18 99/55 L 95 12/01/17 07:51 12/01/17 09:30 12/01/17 07:51 12/01/17 09:30 12/01/17 07:51 Laboratory Results 11/29/17 06:25 12/01/17 03:18 11/30/17 12/01/17 12/02/17 05:59 05:59 05:59 Intake Total 850 650 472 Output Total 1550 2045 360 Balance -700 -1395 112 PT 25.0 SEC (12.0-15.0) H 12/01/17 03:18 INR 2.26 (0.83-1.16) H 12/01/17 03:18 Physical Exam - Physical Exam General Appearance: alert, no apparent distress Neck: supple Respiratory: rhonchi Cardiac/Chest: edema, irregularly irregular, No gallop, No JVD Abdomen: normal bowel sounds, non-tender, soft Skin: No rash Neuro/Psych: no motor/sensory deficits, alert, normal mood/affect, oriented x 3 ICD10 Worksheet Patient Problems: Problems Problem Status Onset chronic disease mgmt/transitional care Acute Cervical spinal stenosis Acute Cervicalgia Acute Cervical radiculitis Acute Cor pulmonale (chronic) Acute Coronary arteriosclerosis Acute Hypoxemia Acute Sacral decubitus ulcer Acute Review of Systems - Review of Systems Constitutional: malaise, weakness. denies: chills, fever Respiratory: shortness of breath. denies: wheezing, hurts to breath Cardiac: no symptoms reported Gastrointestinal/Abdominal: no symptoms reported Genitourinary: frequency Musculoskelatal: no symptoms Skin: no symptoms Neurological: no symptoms Hematologic/Lymphatic: no symptoms reported
--- NOTE | 2017-12-01 10:38 | PDDCSUM ---
Discharge Summary Discharge Summary: Admission date: 11/28/2017 Discharge date: 12/01/2017. Admission diagnosis: Decompensated chronic cor pulmonale Discharge diagnosis: Compensated chronic cor pulmonale, chronic hypoxia on supplemental oxygen, atrial fibrillation, high risk medication use, pre existing sacral pressure sore, contraction alkalosis, coronary disease with history of PCI, hyperlipidemia, hypertension. Procedures done noted this hospitalization: Echocardiogram. Follow-up Wound Clinic Otis Rodrigues one week with basic metabolic panel. Hospital course patient is an 82-year-old male well known to us admitted from the clinic with decompensation of chronic cor pulmonale secondary to longstanding hypoxia on chronic oxygen use. Patient had been intermittently compliant with oxygen and medications. He was diuresed slowly over the course of several days. He had marked improvement in clinical symptoms. He was back at his baseline. He was seen by the Wound Service and found have a stage II pressure injury which is managed. This is pre-existing. He was up ambulating free of significant symptomatology on supplemental oxygen. Electrolytes show a contraction alkalosis today with stable blood pressure and heart rate. He remains anticoagulated for his atrial fibrillation. Overall prognosis remains guarded. It is very important for him to travel to [place] for family reunion. I am in agreement with this plan as long as he continues to use supplemental oxygen. Will return him to his prior medical regime including beta -blockade, low-dose Lasix, Aldactone with continue close clinical follow-up. Physical examination on the day of discharge: Blood pressure is 98/70. Heart rate is 80 and irregular. Elderly cachectic male. He speaks in 3 corner sense is chronically. He is on supplemental oxygen. He had no JVP at 90 degrees. Chest at decreased breath sounds with occasional scattered rhonchi. He had an irregular irregular rhythm with a 3/6 systolic murmur. He has Ponce hose without significant edema above the knee. He is alert and oriented with normal mood and affect. Discharge instructions: Continue home oxygen. Continue medications as prescribed. Dietary discretion. Clinical follow-up in 1 week with electrolytes. Wound care. Aggressive rehabilitation.
[2017-12-01 11:25] VITALS: BP 108/72
[2017-12-01] MEDS: LISINOPRIL 2.5 MG TAB PO SCH (11:59)
== END 2017-12-01 14:22 | disposition home or self-care (01) | DRG 315 ==
LOC: F2W 11:32
PROVIDERS: ADMIT Internal Medicine Interventional Cardiology; ATTEND Internal Medicine Interventional Cardiology
DX: I27.81 Cor pulmonale (chronic) (principal); J96.11 Chronic respiratory failure with hypoxia; E87.3 Alkalosis; I48.91 Unspecified atrial fibrillation; L89.152 Pressure ulcer of sacral region, stage 2; I25.10 Atherosclerotic heart disease of native coronary artery without angina pectoris; Z95.5 Presence of coronary angioplasty implant and graft; E78.5 Hyperlipidemia, unspecified; I10 Essential (primary) hypertension; E03.9 Hypothyroidism, unspecified; Z79.01 Long term (current) use of anticoagulants
CPT/HCPCS: J1940

== ENCOUNTER → 2018-01-15 | Outpatient (CLI) | payer BC, OTHER ==
[2018-01-15 15:21] LABS: PLATELET COUNT 168 10^3/uL (150-400)
[2018-01-15 15:30] LABS: INR 2.49 (0.83-1.16); PROTIME(PATIENT) 26.9 SEC (12.0-15.0)
== END ==
LOC: FIMAGING 14:07
PROVIDERS: ATTEND Nurse Practitioner Adult Health
DX: I50.32 Chronic diastolic (congestive) heart failure (principal); I25.10 Atherosclerotic heart disease of native coronary artery without angina pectoris; E87.70 Fluid overload, unspecified; J90 Pleural effusion, not elsewhere classified; J98.11 Atelectasis

== ENCOUNTER → 2018-02-22 | Outpatient (CLI) | payer BC, OTHER | LOC: FIMAGING 10:16 | PROVIDERS: ATTEND Internal Medicine Critical Care Medicine | DX: I50.9 Heart failure, unspecified (principal); R60.9 Edema, unspecified; J90 Pleural effusion, not elsewhere classified; I25.10 Atherosclerotic heart disease of native coronary artery without angina pectoris ==